=== PATIENT | female | born 1975 | race Two or more races ===

== ENCOUNTER 2023-03-17 05:24 | Day surgery (SDC) | payer OTHER ==
[2023-03-13 11:42] VITALS: BMI 31.1
[2023-03-17] MEDS ORDERED: GABAPENTIN 300 MG CAPSULE ONE ×2 (06:13→06:15)
[2023-03-17] MEDS ORDERED: PHENAZOPYRIDINE HCL 100 MG TABLET (FP) ONE (06:14)
[2023-03-17] MEDS ORDERED: ceFAZolin SODIUM 1 GM VIAL ONE (06:14)
[2023-03-17] MEDS ORDERED: CEFAZOLIN 2 GM in DEXTROSE 5%-WATER - 100 ML IVPB ONE (06:30)
[2023-03-17] MEDS ORDERED: GABAPENTIN 300 MG CAPSULE PO ONE (06:30)
[2023-03-17] MEDS ORDERED: ACETAMINOPHEN 1000 MG/100 ML BAG IVPB ONE ×2 (06:30→10:20)
[2023-03-17] MEDS ORDERED: TRANEXAMIC ACID 1000 MG/10 ML VIAL IVPUSH ONE (06:30)
[2023-03-17] MEDS ORDERED: PHENAZOPYRIDINE HCL 100 MG TABLET (FP) PO ONE (06:30)
[2023-03-17] MEDS ORDERED: SUCCINYLCHOLINE CHLORIDE 200 MG/10 ML SYRINGE ONE (07:34)
[2023-03-17] MEDS ORDERED: MIDAZOLAM HCL 2 MG/2 ML SINGLE DOSE VIAL ONE (07:34)
[2023-03-17] MEDS ORDERED: FENTANYL CITRATE/PF 50 MCG/ML VIAL ONE ×2 (07:34→09:43)
[2023-03-17] MEDS ORDERED: PROPOFOL 20 ML ONE (07:34)
[2023-03-17] MEDS ORDERED: ceFAZolin SODIUM 1 GM VIAL IVPB ONE (07:50)
[2023-03-17] MEDS ORDERED: LIDOCAINE HCL/PF 2% SDV 5ML VIAL ONE (07:55)
[2023-03-17] MEDS ORDERED: ROCURONIUM BROMIDE 50 MG/5 ML SYRINGE ONE (07:56)
[2023-03-17] MEDS ORDERED: ONDANSETRON 4 MG/2 ML VIAL ONE ×2 (08:02→09:43)
[2023-03-17] MEDS ORDERED: DEXAMETHASONE SOD PHOSPHATE 4 MG/1 ML VIAL ONE (08:02)
[2023-03-17] MEDS ORDERED: GLYCOPYRROLATE 0.2 MG/1 ML VIAL ONE (08:11)
[2023-03-17] MEDS ORDERED: LIDOCAINE HCL 1%, 10 MG/ML (20ML VIAL) ONE (09:30)
[2023-03-17] MEDS ORDERED: HYDROmorphone HCl 2 MG/ML VIAL ONE (09:47)
[2023-03-17] MEDS ORDERED: NEOSTIGMINE METHYLSULFATE 0.5 MG/1 ML - 10 ML MDV ONE (09:48)
[2023-03-17] MEDS ORDERED: BUPIVACAINE HCL/PF 0.5% (5MG/ML) 10 ML VIAL IJ ONE (09:50)
[2023-03-17] MEDS ORDERED: LIDOCAINE HCL 1%, 10 MG/ML (50 mL VIAL) INF ONE (09:50)
[2023-03-17] MEDS ORDERED: oxyCODONE HCL 5 MG TABLET PO PRN ×2 (10:15)
[2023-03-17] MEDS ORDERED: DOCUSATE SODIUM 100 MG CAPSULE (FP) PO PRN (10:15)
[2023-03-17] MEDS ORDERED: ONDANSETRON 4 MG/2 ML VIAL IVPUSH PRN ×2 (10:15→10:18)
[2023-03-17] MEDS ORDERED: BISACODYL 5 MG TABLET.DR (FP) PO PRN (10:15)
[2023-03-17] MEDS ORDERED: ACETAMINOPHEN INJECTION 100 ML IVPB ONE (10:17)
[2023-03-17] MEDS ORDERED: ALBUTEROL SO4 0.083% IH SOL 2.5 MG/3 ML VIAL.NEB. NEB ONE ×2 (10:17→10:19)
[2023-03-17] MEDS ORDERED: PROMETHAZINE HCL 25 MG/1 ML VIAL IVPB PRN (10:18)
[2023-03-17] MEDS ORDERED: HYDROmorphone HCl 2 MG/ML VIAL IVPB PRN (10:18)
[2023-03-17] MEDS ORDERED: ALBUTEROL SULFATE 0.021% (0.63 MG/3 ML) VIAL.NEB NEB ONE (10:20)
[2023-03-17] MEDS: SODIUM CHLORIDE 1,000 ML IV SCH (10:20)
[2023-03-17] MEDS ORDERED: LACTATED RINGERS SOLUTION 1,000 ML IV SCH (10:30)
[2023-03-17] MEDS ORDERED: HYDROmorphone HCl 2 MG/ML VIAL IVPUSH ONE ×4 (10:50→11:35)
[2023-03-17] MEDS ORDERED: ALBUTEROL SO4 HFA INHALER IH PRN (12:00)
[2023-03-17] MEDS ORDERED: CEFAZOLIN 1 GM in DEXTROSE 5%-WATER 50 ML IVPB SCH (16:00)
[2023-03-17] MEDS: CEFAZOLIN 1 GM in DEXTROSE 5%-WATER - 50 ML IVPB SCH (16:33)
[2023-03-17] MEDS ORDERED: ACETAMINOPHEN 325 MG TABLET (FP) PO SCH (17:00)
[2023-03-17] MEDS: ACETAMINOPHEN 500 MG TABLET (FP) PO SCH ×2 (17:48→23:15)
[2023-03-17 18:06] VITALS: RESP 18
[2023-03-17 18:41] LABS: HEMATOCRIT 35.6 % (32.4-45.2); HEMOGLOBIN 12.5 GM/dL (10.7-15.3); MCH 31.2 pg (25.7-33.7); MCHC 35.1 g/dl (32.0-36.0); MEAN PLT VOLUME 8.2 fl (7.5-11.1); PLATELET COUNT 178 10^3/uL (134-434); RDW 13.3 % (11.6-15.6); WHITE BLOOD COUNT 9.5 K/mm3 (4.0-10.0)
[2023-03-17] MEDS: IBUPROFEN 800 MG/8 ML IJ IVPB SCH (18:48)
[2023-03-17 19:14] LABS: POTASSIUM 3.9 mmol/L (3.5-5.1)
[2023-03-17 19:18] LABS: BLOOD UREA NITROGEN 10.5 mg/dL (7-18)
[2023-03-17 19:21] LABS: CREATININE 0.8 mg/dL (0.55-1.3)
[2023-03-17] MEDS ORDERED: amLODIPine BESYLATE 10 MG TABLET (FP) PO SCH (22:00)
[2023-03-17] MEDS: SIMETHICONE 80 MG TAB.CHEW (FP) PO PRN (22:17)
[2023-03-17] MEDS: METOPROLOL TARTRATE 50 MG TABLET (FP) PO SCH (22:20)
[2023-03-18] MEDS: CEFAZOLIN 1 GM in DEXTROSE 5%-WATER - 50 ML IVPB SCH ×2 (00:43→10:20)
[2023-03-18] MEDS: SODIUM CHLORIDE 1,000 ML IV SCH (00:46)
[2023-03-18] MEDS: IBUPROFEN 800 MG/8 ML IJ IVPB SCH ×2 (03:23→10:45)
[2023-03-18] MEDS: SIMETHICONE 80 MG TAB.CHEW (FP) PO PRN ×2 (03:24→10:58)
[2023-03-18] MEDS: ACETAMINOPHEN 500 MG TABLET (FP) PO SCH ×2 (05:30→13:36)
[2023-03-18 07:44] LABS: HEMATOCRIT 35.8 % (32.4-45.2); HEMOGLOBIN 12.2 GM/dL (10.7-15.3); MCH 30.9 pg (25.7-33.7); MCHC 34.1 g/dl (32.0-36.0); MEAN CELL VOLUME 90.5 fl (80-96); MEAN PLT VOLUME 7.9 fl (7.5-11.1); PLATELET COUNT 175 10^3/uL (134-434); RBC 3.95 M/mm3 (3.60-5.2); RDW 13.4 % (11.6-15.6); WHITE BLOOD COUNT 9.4 K/mm3 (4.0-10.0)
[2023-03-18 07:57] LABS: POTASSIUM 3.6 mmol/L (3.5-5.1)
[2023-03-18 08:11] LABS: BLOOD UREA NITROGEN 7.3 mg/dL (7-18); CALCIUM 8.1 mg/dL (8.5-10.1)
[2023-03-18 08:15] LABS: CREATININE 0.7 mg/dL (0.55-1.3)
[2023-03-18 09:14] VITALS: BP 119/72; PULSE 75; TEMP 98.6
[2023-03-18] MEDS ORDERED: amLODIPine BESYLATE 10 MG TABLET (FP) PO SCH (10:00)
[2023-03-18] MEDS ORDERED: ENOXAPARIN NA (PORCINE) 40 MG/0.4 ML DISP.SYRIN SQ SCH (10:00)
[2023-03-18] MEDS: METOPROLOL TARTRATE 50 MG TABLET (FP) PO SCH (10:18)
== END 2023-03-18 14:00 | disposition home or self-care (01) ==
LOC: JASUSAT 05:24 → J3W 13:24 → JASUSAT 03-18 14:00
PROVIDERS: ATTEND Obstetrics & Gynecology
PROC: 0WQF0ZZ Repair Abdominal Wall, Open Approach (ICD-10-PCS; 2023-03-17)
PROC: 0UT94ZZ Resection of Uterus, Percutaneous Endoscopic Approach (ICD-10-PCS; principal; 2023-03-17 07:30)
PROC: 0UT74ZZ Resection of Bilateral Fallopian Tubes, Percutaneous Endoscopic Approach (ICD-10-PCS; 2023-03-17 07:30)
PROC: 0UB14ZZ Excision of Left Ovary, Percutaneous Endoscopic Approach (ICD-10-PCS; 2023-03-17 07:30)
DX: D25.1 Intramural leiomyoma of uterus (principal); D25.2 Subserosal leiomyoma of uterus; K42.9 Umbilical hernia without obstruction or gangrene; N83.201 Unspecified ovarian cyst, right side; N72 Inflammatory disease of cervix uteri; N83.8 Other noninflammatory disorders of ovary, fallopian tube and broad ligament
CPT/HCPCS: 49591; 58571; 58662; S2900; 36415; 80048; 81025; 85027; 86850; 86900; 86901; 88305-TC; 88307-TC; 94010; 94640; 94760